=== PATIENT | female | born 1990 | race American Indian/Alaskan Native ===

== ENCOUNTER 2017-11-26 20:02 | Emergency (ER) | payer OTHER ==
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
[2017-11-27 06:24] VITALS: BP 106/64
== END 2017-11-27 07:44 | disposition home or self-care (01) ==
LOC: ED 20:02
DX: M54.6 Pain in thoracic spine (principal); M25.519 Pain in unspecified shoulder; V89.2XXA Person injured in unspecified motor-vehicle accident, traffic, initial encounter; Y93.89 Activity, other specified; Y92.89 Other specified places as the place of occurrence of the external cause; Y99.8 Other external cause status
CPT/HCPCS: 99282